=== PATIENT | male | born 1945 | race Caucasian/White ===

== ENCOUNTER 2019-11-03 05:22 | Day surgery (SDC) | payer MEDICARE ==
[~2019-11-03] VITALS: Ht 177.8 cm; Wt 79.0 kg
[~2019-11-03 05:22] MED LIST: ACET650S21 PO; GABA-826 PO; LEUP3.75 INJ; TAMS-11 PO
[2019-11-03] MEDS ORDERED: LACTATED RINGERS 1,000 ML IV SCH (06:02)
[2019-11-03 06:10] VITALS: BP 168/93
[2019-11-03] MEDS ORDERED: CHLORHEXIDINE 15 ML UDC MM ONE (06:30)
[2019-11-03] MEDS ORDERED: OXYcodone 5 MG/5 ML ORAL.SOL UDC PO PRN (07:30)
[2019-11-03] MEDS ORDERED: LABETALOL 5MG/ML, 20ML IV PRN (07:30)
[2019-11-03] MEDS ORDERED: ONDANSETRON 2MG/ML, 2ML IVPush PRN (07:30)
[2019-11-03] MEDS ORDERED: PROPOFOL 10 MG/ML, 100ML IV ONE (07:54)
[2019-11-03] MEDS ORDERED: FENTANYL PF 100 MCG/2ML ONE (08:36)
[2019-11-03] MEDS ORDERED: ACETAMINOPHEN 650 MG/20.3 ML UDC ONE (08:36)
[2019-11-03] MEDS: FENTANYL PF 100 MCG/2ML IV PRN ×2 (08:41→08:55)
[2019-11-03] MEDS ORDERED: ACETAMINOPHEN 650 MG/20.3 ML UDC PO PRN (09:00)
== END 2019-11-03 10:00 | disposition home or self-care (01) ==
LOC: OR 05:22
PROVIDERS: ATTEND Internal Medicine Geriatric Medicine
DX: K62.7 Radiation proctitis (principal); Z11.59 Encounter for screening for other viral diseases; K62.89 Other specified diseases of anus and rectum; Z79.899 Other long term (current) drug therapy; Z85.46 Personal history of malignant neoplasm of prostate; Z92.3 Personal history of irradiation
CPT/HCPCS: 45346; 93005; J2704; J3010; J7120; U0001